=== PATIENT | male | born 1940 | race Caucasian/White ===

== ENCOUNTER 2017-01-31 12:45 | Day surgery (SDC) | payer MEDICARE, BC ==
--- NOTE | ~2017-01-31 | EGD ---
EGD REPORT [facility] [address] [place] [id number] NAME: CARLOS MG : 38 STATUS : REG [place] PAT#: [id number] AGE: 76 ADM/REG DATE : 01/31/17 MR#: [id number] REPORT SERV DATE: 01/31/17 DICTATED BY: TAMMY CRUZ DATE: 01/31/17 REPORT STATUS : Draft TRANSCRIBED BY: [facility] DATE: 01/31/17 [facility] Patient Name: Carlos Mg Date of : 1940 Attending MD: TAMMY CRUZ MD Procedure Date No Time: 01/31/2017 Procedure: Upper GI endoscopy Indications: Nausea with vomiting, Weight loss Referring MD: TAMMY TIMMONS Medicines: Propofol per Anesthesia Complications: No immediate complications. Estimated blood loss: None. Procedure: Pre-Anesthesia Assessment: - After reviewing the risks and benefits, the patient was deemed in satisfactory condition to undergo the procedure. - Prior to the procedure, a History and Physical was performed, and patient medications and allergies were reviewed. The patient's tolerance of previous anesthesia was also reviewed. The risks and benefits of the procedure and the sedation options and risks were discussed with the patient. All questions were answered, and informed consent was obtained. Prior Anticoagulants: The patient has taken Coumadin (warfarin), last dose was 5 days prior to procedure. ASA Grade Assessment: IV - A patient with severe systemic disease that is a constant threat to life. After reviewing the risks and benefits, the patient was deemed in satisfactory condition to undergo the procedure. After obtaining informed consent, the endoscope was passed under direct vision. Throughout the procedure, the patient's blood pressure, pulse, and oxygen saturations were monitored continuously. The GIF [id number] was introduced through the mouth, and advanced to the antrum of the stomach. The upper GI endoscopy was performed with difficulty due to abnormal anatomy with most of the stomach in the thoracic position with severe looping. The patient tolerated the procedure well. Findings: The examined esophagus was normal. A large hiatus hernia was present. The scope looped in the stomach despite splinting and could not be advanced through the pylorus. Impression: - Normal esophagus. - Large hiatus hernia. EGD REPORT [address] [id number] NAME: CARLOS MG : [birth year] STATUS : REG [facility]#: [id number] AGE: 76 ADM/REG DATE : 01/31/17 MR#: [id number] REPORT SERV DATE: 01/31/17 DICTATED BY: TAMMY CRUZ DATE: 01/31/17 REPORT STATUS : Draft TRANSCRIBED BY: [employer] DATE: 01/31/17 - GERD. - Nausea and vomiting secondary to opiods improved after changing back to short acting opioids. - Opioid-induced constipation. Recommendation: - Discharge patient to home (ambulatory). - Diet as tolerated with small, frequent feedings. - Continue Protonix (pantoprazole) 40 mg daily in the morning. - Use Phenergan 12.5 mg every 6 hours as needed. - Resume Coumadin (warfarin) today. - Begin Miralax one capful daily for constipation. - Patient has a contact number available for emergencies. The signs and symptoms of potential delayed complications were discussed with the patient. Return to normal activities tomorrow. Written discharge instructions were provided to the patient. Procedure Code(s): --- Professional --- 53671, 52, Esophagogastroduodenoscopy, flexible, transoral; diagnostic, including collection of specimen(s) by brushing or washing, when performed (separate procedure) Diagnosis Code(s): --- Professional --- K44.9, Diaphragmatic hernia without obstruction or gangrene K21.9, Gastro-esophageal reflux disease without esophagitis R11.2, Nausea with vomiting, unspecified R63.4, Abnormal weight loss CPT copyright 2013 [employer]. All rights reserved. The codes documented in this report are preliminary and upon laminating machine offbearer review may be revised to meet current compliance requirements. TAMMY CRUZ MD 01/31/2017 3:38 PM This report has been signed electronically. Number of Addenda: 0 Note Initiated On: 01/31/2017 3:10 PM Scope Withdrawal Time 0 hours 0 minutes 0 seconds EGD REPORT [facility] [address] [id number] NAME: MATTHEWCARLOS : 38 STATUS : REG [place] PAT#: [id number] AGE: 76 ADM/REG DATE : 01/31/17 MR#: [id number] REPORT SERV DATE: 01/31/17 DICTATED BY: TAMMY CRUZ DATE: 01/31/17 REPORT STATUS : Draft TRANSCRIBED BY: [employer] DATE: 01/31/17 [address] [id number]
[~2017-01-31 12:45] MED LIST: ART2 PO; ASAB PO; C5 PO; CARB; COUMADIN7.5 MG PO; CYMBALTA60 PO; LYRICA50 PO; MSCONT60 PO; NEUR600 PO; OXYCOD PO; PRILO PO; PROAMAT5 PO; PROTONIX PO; REQUIP3 PO; SINCR25100 PO; VITAMIN B-121000 MC1 SL
[2017-01-31 14:27] LABS: INTERNATIONAL NORMAL RATI 1.2 UNITS (-); PROTIME (NOT ORD) 15.2 SEC (12.0-14.5)
== END 2017-01-31 23:59 | disposition home or self-care (01) ==
LOC: DMU 12:45
PROVIDERS: Internal Medicine Gastroenterology
PROC: 0DJ08ZZ Inspection of Upper Intestinal Tract, Via Natural or Artificial Opening Endoscopic (ICD-10-PCS; principal; 2017-01-31 14:45)
DX: K44.9 Diaphragmatic hernia without obstruction or gangrene (principal); K21.9 Gastro-esophageal reflux disease without esophagitis; R11.2 Nausea with vomiting, unspecified; R63.4 Abnormal weight loss; Z85.79 Personal history of other malignant neoplasms of lymphoid, hematopoietic and related tissues; Z92.21 Personal history of antineoplastic chemotherapy; Z92.3 Personal history of irradiation; Z90.89 Acquired absence of other organs; Z90.49 Acquired absence of other specified parts of digestive tract; R32 Unspecified urinary incontinence; G20 Parkinson's disease; Z98.41 Cataract extraction status, right eye; Z98.42 Cataract extraction status, left eye; Z96.1 Presence of intraocular lens; Z95.5 Presence of coronary angioplasty implant and graft; I49.9 Cardiac arrhythmia, unspecified; I82.401 Acute embolism and thrombosis of unspecified deep veins of right lower extremity; R06.02 Shortness of breath; Z79.82 Long term (current) use of aspirin; Z79.891 Long term (current) use of opiate analgesic; Z79.899 Other long term (current) drug therapy
CPT/HCPCS: 85610; 93005